=== PATIENT | male | born 1990 | race American Indian/Alaskan Native ===

== ENCOUNTER 2017-07-10 16:47 | Emergency (ER) | payer SELFPAY ==
[2017-07-10] MEDS ORDERED: MORPHINE IV ONE (18:39)
[2017-07-10] MEDS ORDERED: NACL 0.9% 1000 ML 1,000 ML IV ONE (18:39)
[2017-07-10] MEDS ORDERED: PEPCID IV ONE (18:39)
--- NOTE | 2017-07-10 19:09 | Emergency Department Report ---
HPI - General Chief Complaint: Abdominal Pain Time Seen by Provider: 07/10/17 18:26 - HPI HPI: This is a 26-year-old Afro[place] male presents to the emergency Department from home by EMS with complaint of rectal bleeding and hematemesis. This is associated with some generalized abdominal discomfort. He says that this is an ongoing issue for him but it has worsened recently. Today he had some bright red blood per rectum upon having a bowel movement and then later had another one where he said it was darker but not black or tarry. After this he had an episode of nausea and vomited up some bright blood as well. He denies any fever , back pain, dysuria, chest pain, shortness of breath. He denies any diagnosed past medical history. He does not have a primary care physician or has never seen a gastric urologist for these symptoms. He did not take anything and was not given anything for his symptoms prior to presentation. He is a tobacco smoker but denies any illicit drug use. No recent travel or sick contacts at home. ED Past Medical Hx - Past Medical History Previous Medical History?: Yes Hx Sickle Cell Disease: No (Sickle cell trait) Hx Asthma: Yes Additional medical history: Sickle cell trait - Surgical History Past Surgical History?: No - Social History Smoking Status: Never Smoker Substance Use Type: None - Medications Home Medications: Home Medications Medication Instructions Recorded Confirmed Last Taken Type Ciprofloxacin HCl [Cipro] 500 mg PO Q12H #20 tab 11/06/13 Unknown Rx Famotidine [Pepcid] 20 mg PO QHS #30 tablet 11/06/13 Unknown Rx Starch 51%(Nf) [Anusol] 1 each WI Q12H #12 supp.rect 11/06/13 Unknown Rx HYDROcodone/APAP 5-325 [[place] 1 each PO Q6HR PRN #12 tablet 07/10/17 Unknown Rx 5-325 mg TAB] Omeprazole Magnesium [PriLOSEC Otc] 20 mg PO QDAY #20 tablet. 07/10/17 Unknown Rx ED Review of Systems ROS: Stated complaint: EMESIS BLOOD Other details as noted in HPI Comment: All other systems reviewed and negative Constitutional: denies: chills, fever Eyes: denies: eye pain, eye discharge, vision change ENT: denies: ear pain, throat pain Respiratory: denies: cough, shortness of breath, wheezing Cardiovascular: denies: chest pain, palpitations Gastrointestinal: abdominal pain, vomiting, hematemesis Genitourinary: denies: urgency, dysuria Musculoskeletal: denies: back pain, joint swelling, arthralgia Skin: denies: rash, lesions Neurological: denies: headache, weakness, paresthesias Physical Exam - Physical Exam Vital Signs: Vital Signs 07/10/17 18:29 Pulse Rate 64 Respiratory 16 Rate Blood Pressure 113/64 O2 Sat by Pulse 100 Oximetry Physical Exam: GENERAL: The patient is well-developed well-nourished. HENT: Normocephalic. Atraumatic. Patient has moist mucous membranes. EYES: Extraocular motions are intact. Pupils equal reactive to light bilaterally. NECK: Supple. Trachea is midline. CHEST/LUNGS: Clear to auscultation. There is no respiratory distress noted. HEART/CARDIOVASCULAR: Regular. There is no tachycardia. There is no gallop rub or murmur. ABDOMEN: Abdomen is soft. There is some mild upper abdominal tenderness to palpation. No guarding or rebound tenderness. Patient has normal bowel sounds. There is no abdominal distention. SKIN: Scheduled to. NEURO: The patient is awake, alert, and oriented. The patient is cooperative. The patient has no focal neurologic deficits. The patient has normal speech. MUSCULOSKELETAL: There is no tenderness or deformity. There is no limitation range of motion. There is no evidence of acute injury. RECTAL: There is a nonthrombosed small hemorrhoid at about the 6 o'clock position. Stool was positive on guaiac testing but no gross blood seen. ED Course Vital Signs 07/10/17 18:29 Pulse Rate 64 Respiratory 16 Rate Blood Pressure 113/64 O2 Sat by Pulse 100 Oximetry ED Medical Decision Making - Lab Data Result diagrams: 07/10/17 18:52 07/10/17 18:52 - Radiology Data Radiology results: report reviewed, image reviewed interpreted by me: Chest x-ray does not show any acute process. There are no pleural effusions, obvious pneumonia and there is no pneumothorax. Abdominal x-ray shows nonspecific nonobstructive bowel gas. EXAM: CT ABDOMEN PELVIS W CON HISTORY: Abd pain TECHNIQUE: Serial axial images through the abdomen and pelvis with coronal and sagittal reconstruction. Intravenous administration of 100 milliliters Omnipaque 300 contrast PRIORS: None. FINDINGS: No focal consolidations are seen in the lung bases. No pleural effusion is seen. The liver, gallbladder, pancreas, spleen and adrenal glands appear within normal limits. Kidneys appear normal. Aorta is normal in caliber. Bladder is decompressed. Appendix appears normal. The wall of the descending colon appears slightly thickened. There is not evidence of bowel obstruction. Gastric mucosa appears slightly hyper enhancing and thickened. No acute osseous abnormality is identified. IMPRESSION: 1. Gastric mucosa appears were slightly hyper enhancing and thickened. This could indicate gastritis. The patient can be further assessed endoscopically if indicated. 2. Normal-appearing appendix. 3. The wall of the descending colon appears slightly thickened. This may be exaggerated by nondistention. This could be related to colitis in the proper clinical setting. Transcribed By: ALFONSO Dictated By: ANNA JHAVERI MD Electronically Authenticated By: ANNA JHAVERI MD Signed Date/Time: 07/10/17 7907 - Medical Decision Making 26-year-old male presents the emergency department with 1-2 episodes of rectal bleeding and one episode of hematemesis. Vital signs stable throughout his ED course. The patient has not had any further GI bleeding since being in the emergency department. He does have some abdominal discomfort to palpation. Labs are unremarkable. Hemoglobin is greater than 15. No elevation in the belly labs. Chest and abdominal x-ray did not show any acute process. CT of the abdomen and pelvis shows some possible gastritis and some possible mild distal colitis. There is no fever or leukocytosis and I do not believe the patient requires any antibiotics at this time. He was given some pain control and Pepcid within the emergency department. We will try outpatient treatment first and the patient has been given referrals for gastroenterology, prescription for Prilosec and for pain medication and we discussed a diet to try for her gastritis and/or ulcer disease. He may need endoscopy or colonoscopy in the near future. He will return to the ER with any worsening of symptoms or any acute distress. - Differential Diagnosis hemorrhoids, peptic ulcer disease, gastritis, colitis, diverticulitis, nika Critical Care Time: No Critical care attestation.: If time is entered above; I have spent that time in minutes in the direct care of this critically ill patient, excluding procedure time. ED Disposition Clinical Impression: Rectal bleeding Abdominal pain Qualifiers: Abdominal location: generalized Qualified Code(s): R10.84 - Generalized abdominal pain Hematemesis Qualifiers: Nausea presence: unspecified Qualified Code(s): K92.0 - Hematemesis Gastritis Qualifiers: Gastritis type: unspecified gastritis Chronicity: unspecified Gastritis bleeding: with bleeding Qualified Code(s): K29.71 - Gastritis, unspecified, with bleeding Disposition: TO HOME OR SELFCARE Is pt being admited?: No Condition: Stable Instructions: Gastritis (ED), Gastrointestinal Bleeding (ED), Rectal Bleeding ( ED), Diet for Ulcers and Gastritis (ED) Additional Instructions: Please follow up with a primary care physician. I've given you a referral for a local gastroenterology group. He need to follow-up as you may require endoscopy and colonoscopy in the near future for your rectal bleeding and vomiting blood. Return to the emergency Department with any worsening of your symptoms or any acute distress. Try and stay away from foods that are acidic, spicy, high in caffeine and try to avoid any smoking or alcohol. You have been prescribed a medication that is sedating and therefore should not be taken prior to driving, working, and responsible for children and in no way should be mixed with alcohol of any quantity. Prescriptions: HYDROcodone/APAP 5-325 [[place] 5-325 mg TAB] 1 each PO Q6HR PRN #12 tablet PRN Reason: Pain Omeprazole Magnesium [PriLOSEC Otc] 20 mg PO QDAY #20 tablet. Referrals: PRIMARY CAREMD [Primary Care Provider] - 3-5 Days KATIA KLINE MD [Staff Physician] - [facility] Time of Disposition: 21:42
[2017-07-10 19:10] LABS: Basophils % (Auto) 1.2 % (0.0-1.8); Eosinophils % (Auto) 1.3 % (0.0-4.3); Hematocrit 47.5 % (35.5-45.6); Hemoglobin 15.8 gm/dl (11.8-15.2); Mean Corpuscular HGB Conc 33 % (32-34); Mean Corpuscular Hemoglobin 28 pg (28-32); Mean Corpuscular Volume 86 fl (84-94); Platelet Count 234 K/mm3 (140-440); Red Blood Count 5.55 M/mm3 (3.65-5.03); Red Cell Distribution Width 13.5 % (13.2-15.2); White Blood Count 4.5 K/mm3 (4.5-11.0)
[2017-07-10 19:20] LABS: INR 1.1 (0.87-1.13)
[2017-07-10 19:21] LABS: Partial Thromboplastin Time 31.5 Sec. (24.2-36.6)
[2017-07-10 19:31] LABS: Alanine Aminotransferase 63 units/L (7-56); Albumin 4.7 g/dL (3.9-5); Albumin/Globulin Ratio 1.6 %; Alkaline Phosphatase 70 units/L (35-129); Anion Gap 17 mmol/L; BUN/Creatinine Ratio 26.66; Blood Urea Nitrogen 16 mg/dL (9-20); Calcium 9.5 mg/dL (8.4-10.2); Carbon Dioxide 27 mmol/L (22-30); Chloride 98.1 mmol/L (98-107); Glucose 83 mg/dL (75-100); Lipase 17 units/L (13-60); Potassium 4.4 mmol/L (3.6-5.0); Sodium 138 mmol/L (137-145); Total Protein 7.7 g/dL (6.3-8.2)
[2017-07-10] MEDS ORDERED: NACL ONE (20:18)
--- NOTE | 2017-07-10 20:45 | XRay Report ---
FINAL REPORT EXAM: XR ABD SERIES W CXR 1V HISTORY: Abd pain, hematemesis TECHNIQUE: Single-view chest two view abdomen PRIORS: None. FINDINGS: No focal consolidations are seen in the lungs. Heart size is within normal limits. No pneumoperitoneum is seen. There is a nonobstructed bowel-gas pattern. No abnormal calcifications are seen. No acute osseous abnormality is identified. IMPRESSION: 1. No definite radiographic evidence of acute cardiopulmonary disease. 2. Nonobstructed bowel-gas pattern.
--- NOTE | 2017-07-10 21:14 | Cat Scan Report ---
FINAL REPORT EXAM: CT ABDOMEN PELVIS W CON HISTORY: Abd pain TECHNIQUE: Serial axial images through the abdomen and pelvis with coronal and sagittal reconstruction. Intravenous administration of 100 milliliters Omnipaque 300 contrast PRIORS: None. FINDINGS: No focal consolidations are seen in the lung bases. No pleural effusion is seen. The liver, gallbladder, pancreas, spleen and adrenal glands appear within normal limits. Kidneys appear normal. Aorta is normal in caliber. Bladder is decompressed. Appendix appears normal. The wall of the descending colon appears slightly thickened. There is not evidence of bowel obstruction. Gastric mucosa appears slightly hyper enhancing and thickened. No acute osseous abnormality is identified. IMPRESSION: 1. Gastric mucosa appears were slightly hyper enhancing and thickened. This could indicate gastritis. The patient can be further assessed endoscopically if indicated. 2. Normal-appearing appendix. 3. The wall of the descending colon appears slightly thickened. This may be exaggerated by nondistention. This could be related to colitis in the proper clinical setting.
[2017-07-10 22:03] VITALS: BP 121/60
== END 2017-07-10 22:09 | disposition home or self-care (01) ==
LOC: ED 16:47
DX: K29.71 Gastritis, unspecified, with bleeding (principal); K92.0 Hematemesis; K62.5 Hemorrhage of anus and rectum; R10.84 Generalized abdominal pain; J45.909 Unspecified asthma, uncomplicated
CPT/HCPCS: 36415; 74022; 74177; 80053; 83690; 85025; 85610; 85730; 86850; 86900; 86901; 96361; 96374; 96375; 99285; J2270; J7030; Q9967